=== PATIENT | female | born 1990 | race Caucasian/White ===

== ENCOUNTER 2024-12-07 15:06 | Emergency (ER) | payer OTHER, SELFPAY ==
[2024-12-07 15:09] VITALS: BP 159/11
--- NOTE | 2024-12-07 16:18 | ED.GENMED ---
History of Present Illness
<London Diego, DO - Last Filed: 12/07/24 16:22>
General
Chief Complaint: Eye Problems
Time Seen by Provider: 12/07/24 15:45
<Raz Irwin MD, Resident - Last Filed: 12/07/24 16:33>
General
Source: patient
Exam Limitations: clinical condition
Nursing documentation reviewed up to this point in time: agreed with
History of Present Illness
History of Present Illness:
This is a 34-year-old female presenting in the emergency department after she had a point-blank right eye injury when she was trying to open champagne bottle and the car flew and hit her right eye. Progressively she noticed decreased and vision.
She wears contact and did not take them out. Admits to have some pain/discomfort denies any headache. She is able to make shadows and light however cannot clearly identify no objects. Denies any use of any medical condition
Past History
<Raz Irwin MD, Resident - Last Filed: 12/07/24 16:33>
Past History
ED Past Medical History: None
ED Past Surgical History: None
Patient has exhibited threatening behavior?: No
Social History
Tobacco: Non-smoker
Alcohol: Occasional
Drug: None
Living: with family
Family History
Family History: Other (Noncontributory)
Review of Systems
<Raz Irwin MD, Resident - Last Filed: 12/07/24 16:33>
Review of Systems
Allergies reviewed?: Yes
Constitutional: Denies fever or chills
EENT: Denies sore throat
Respiratory: Denies cough
Cardiac: Denies chest pain
ABD/GI: Denies abdominal pain
: Denies dysuria
Musculoskeletal: Denies joint pain
Neurological: Denies dizzy or headache
Endocrine: Denies polyuria
Phy Exam
<Raz Irwin MD, Resident - Last Filed: 12/07/24 16:33>
General Physical Exam
General Presentation: mild distress
General age: appears stated age
General Skin: warm
General Mental: alert
Eye Exam
Eye Exam: EOMI and other (Right eye hyphema approximately 50%. Dilated and nonreactive pupil)
Eyelid Exam: red and inflamed: Right
Cardiovascular Exam
Cardiovascular Exam: regular rate/rhythm and no murmur
Pulmonary Exam
Pulmonary Exam: lungs clear, no respiratory distress and no crackles
Neurological Exam
Neurological Exam: alert and oriented x3
Course
<London Diego, DO - Last Filed: 12/07/24 16:22>
Vital Signs
Initial and Last Documented VS:
Initial Vital Signs
Temp Pulse Resp BP Pulse Ox
98.7 F 144 15 159/11 100
12/07/24 15:09 12/07/24 15:09 12/07/24 15:09 12/07/24 15:09 12/07/24 15:09
Last Documented Vital Signs
Temp Pulse Resp BP Pulse Ox
98.7 F 144 15 159/11 100
12/07/24 15:09 12/07/24 15:09 12/07/24 15:09 12/07/24 15:09 12/07/24 16:22
<Raz Irwin MD, Resident - Last Filed: 12/07/24 16:33>
Vital Signs
Initial and Last Documented VS:
Initial Vital Signs
Temp Pulse Resp BP Pulse Ox
98.7 F 144 15 159/11 100
12/07/24 15:09 12/07/24 15:09 12/07/24 15:09 12/07/24 15:09 12/07/24 15:09
Last Documented Vital Signs
Temp Pulse Resp BP Pulse Ox
98.7 F 144 15 159/11 100
12/07/24 15:09 12/07/24 15:09 12/07/24 15:09 12/07/24 15:09 12/07/24 16:22
<Raz Irwin MD, Resident - Last Filed: 12/07/24 16:33>
MDM/Problems Addressed
Differential Diagnosis Includes:
Trauma to the right eye
MDM/Problems Addressed:
Hyphema or proximal 50%. Rey's test negative bilateral eye pressure is 23. Extraocular movements intact. Pupils not reactive. No obvious globe rupture
Given the hyphema and change in the visual acuity Case was discussed with Dr. Devine, who prefers to see the patient in the office LARRY.
Patient agreeable. Discharge instruction to walk to Dr. Devine office larry
<Raz Irwin MD, Resident - Last Filed: 12/07/24 16:33>
*Pulse Oximetry
SaO2: 100
Oxygen Mode of Delivery: Room air
Patient hypoxic: no
*Critical Care Note
Total Time (30-74mins, 75-104mins- exclusive of procedures): Not Applicable
ED Attending Note
<London Diego, DO - Last Filed: 12/07/24 16:22>
ED Attending Note
Patient seen and examined by attending physician: Yes
I performed a history and physical exam of patient and discussed management with resident, I reviewed resident's note and agree with documented findings and plan of care.: Yes
ED Attending Note:
I have seen and evaluated the patient with a [id number] encounter. I have spoken to the resident and involved in the medical history, the physical exam, medical decision making.
Evaluation and management service: agree unless noted differently below.
Results interpretation: agree unless noted differently below.
Focused HPI: 34-year-old female presenting with right eye injury. Patient was opening a bottle champagne just prior to arrival and hit her right in the eye. Patient complaining of eye pain and visual difficulty. Patient states she can only see
light and shadows from her right eye
Physical exam: Right eye with dilated and nonreactive pupil. Hyphema approximately 50%. Negative Rey's test. Bilateral eye pressures 23
Medical Decision Making: Given the hyphema and eye injury, case discussed with ophthalmology who evaluated in the office immediately. Patient and able to walk there
<Raz Irwin MD, Resident - Last Filed: 12/07/24 16:33>
-
Portions of this chart may have been created with voice recognition software.� Occasional wrong word or��sound alike� substitutions may have occurred due to the inherent limitations of voice recognition software.
Discharge Plan
Departure
Patient Disposition: Home (Routine Discharge)
Date of Disposition: 12/07/24
Time of Disposition: 16:19
Patient with high blood pressure during this ER visit?: No
Condition: Fair
Discharge Problem:
Eye injury
Instructions: Eye Contusion (DC)
Referrals:
Fredy Devine MD [Active, Ophthalmology]
Referral Note: NOW
Activity Restrictions/Additional Instructions:
You were seen in the [facility] emergency department after a point-blank right eye injury. While you were in the hospital we performed physical exam including test to check for globe rupture which was negative. We also checked your eye
pressure with this 23 bilateral. Discussed the case with Dr. Fredy Devine on the phone, he recommended to see you in the office in the next [address] minutes. Address instructions attached with the paper
Interventions
Interventions:
*Risk Screen - Suicide Last Done: 12/07/24 15:09
*General Assessment Last Done: 12/07/24 15:09
*Neglect/Abuse Screening Last Done: 12/07/24 15:09
Discharge Date and Time
Print Language: YORUBA
--- NOTE | 2024-12-07 17:59 | EDRN ---
Patient seen and treated and discharged by MD and resident.
== END 2024-12-07 16:45 | disposition home or self-care (01) ==
LOC: EMR 15:06
PROVIDERS: EMERGENCY PHYSICIAN Student in an Organized Health Care Education/Training Program
DX: S05.91XA Unspecified injury of right eye and orbit, initial encounter (principal); W22.8XXA Striking against or struck by other objects, initial encounter
CPT/HCPCS: 99283